=== PATIENT | female | born 1990 | race Two or more races ===

== ENCOUNTER 2016-08-15 00:24 | Inpatient (IN) | payer OTHER ==
[2016-08-15 00:42] VITALS: BMI 35.0
[2016-08-15] MEDS ORDERED: OXYTOCIN IN LR 500 ML IV ONE ×2 (01:14→01:15)
[2016-08-15] MEDS ORDERED: IV START KIT ONE (01:15)
[2016-08-15] MEDS ORDERED: OXYTOCIN 10 UNITS/ML VIAL ONE (01:15)
[2016-08-15] MEDS ORDERED: PUMP TUBING ONE (01:15)
[2016-08-15] MEDS ORDERED: LACTATED RINGERS 1,000 ML ONE (01:15)
[2016-08-15] MEDS ORDERED: MINERAL OIL 25 ML BOT ONE (01:15)
[2016-08-15] MEDS ORDERED: LIDOCAINE Viscous 2% 15 ML UDCUP ONE (01:15)
[2016-08-15] MEDS ORDERED: LIDOCAINE 1% (PRES FREE) 30 ML VIAL ONE (01:15)
[2016-08-15] MEDS ORDERED: LACTATED RINGERS 1,000 ML IV SCH ×2 (01:15→04:28)
[2016-08-15 01:53] LABS: HEMATOCRIT 32.8 % (37.0-47.0); HEMOGLOBIN 10.6 gm/l (12.0-16.0); MEAN CELL VOLUME 85.4 fl (81.0-99.0); MEAN CORPUSCULAR HEMOGLOBIN 27.6 pg (27.0-31.0); MEAN CORPUSCULAR HGB CONC 32.3 g/dl (33.0-37.0); RED CELL DISTRIBUTION WIDTH 15.7 % (11.5-14.5)
--- NOTE | 2016-08-15 03:17 | PCMAN ---
OB Admission Note - History : 2 Term: 1 : 0 Abortions (S&E): 0 Livin EDC:: 08/08/16 Gestational Age (weeks): 41 Days (#/7): 0 Admit Cervical Dilation:: 4.5 Admit Cervical Effacement (%):: 90 Admit Station:: -2 Admit Presentaton:: vertex Membrane Status: Bulging Rupture (Date): 08/15/16 Rupture (Time): 23:00 Membranes Comment:: clear, slow continuous leak Labor Onset (Date): 08/13/16 Labor Onset (Time): 22:00 Contractions: Yes Contraction Frequency:: q2-3 min Heart Rate:: 140 (initially in triage 145, min variability) Status:: Cat I Summary of Course:: 26 yo at 41w0d c/o LOF, also has UCs. PNC: Early PNC. Dated by LMP, c/w organ survey u/s at 22 wks. Uncomplicated course, mild anemia Hgb 10.7 tx'd w oral Fe. OBHx: '10 at term PMH: Varicella PSH: none SocHx: No tob/etoh/drugs Iz: Flu 04/05/16 TdaP 05/09/16 - Labs Blood Type: O (+) positive (ab neg) Hct/Hgb:: 10.7 Rubella Status: Immune GBS Status: Negative Abnormal Labs: None Other Labs:: HIV NR HBsAg NR Syphilis neg GC neg Chlam neg - Physical Exam General: Afebrile, Mild Distress Psych/Mental Status: Mood/Affect Appropriate, Judgment/Insight Intact Neurological: Grossly Intact, Alert, Normal Gait, Normal Speech HEENT: Atraumatic, Mucous membr. moist/pink Lungs: Clear to Auscultation Bilaterally Cardiovascular: Regular Rate and Rhythm Abdomen: Other (gravid) Extremities: Full ROM Skin: Normal Color, Warm, Dry - Problems (1) Post-dates Status: Acute Code: O48.0 Assessment/Plan: 26 yo at 41 0/7 wks w SROM leak, and early labor and flat FHT. Admit IV hydration Expt mgmt Desires natural pain mgmt
[2016-08-15] MEDS: LACTATED RINGERS 1,000 ML IV PRN ×2 (03:32→04:15)
--- NOTE | 2016-08-15 03:33 | PDOC36 ---
Provider Note Subject: Addendum: Note: S: pain is stronger. more difficult to cope, but coping well. desires epidural O: SVE: 5.5/90/-3, large forebag FHT: 140, Cat I [place]: q1-2min, duration 60-180 sec A/P: SROM w labor Epidural for pain Expt mgmt.
[2016-08-15] MEDS ORDERED: FENTANYL/ROPIVACAINE EPIDURAL 250 ML EP ONE (03:39)
[2016-08-15] MEDS ORDERED: EPIDURAL PUMP SET ONE (03:39)
[2016-08-15] MEDS ORDERED: EPIDURAL PROCEDURE TRAY ONE (04:18)
[2016-08-15] MEDS ORDERED: DIPHENHYDRAMINE HCL 50 MG/1 ML VIAL IV PRN (04:28)
[2016-08-15] MEDS ORDERED: LACTATED RINGERS 500 ML IV PRN (04:28)
[2016-08-15] MEDS ORDERED: NALBUPHINE HCL 20 MG/ML AMP IV PRN (04:28)
[2016-08-15] MEDS ORDERED: SODIUM CHLORIDE 0.9% 500 ML IV PRN (04:28)
[2016-08-15] MEDS ORDERED: EPHEDRINE SULFATE 50 MG/ML 1ML VIAL IV PRN (04:28)
[2016-08-15] MEDS ORDERED: ONDANSETRON 4 MG/2ML 2 ML VIAL IV PRN (04:28)
[2016-08-15] MEDS ORDERED: NALOXONE HCL 0.4 MG/ML VIAL IV PRN (04:28)
[2016-08-15] MEDS ORDERED: METOCLOPRAMIDE HCL 5 MG/ML 2ML VIAL IV PRN (04:28)
[2016-08-15] MEDS ORDERED: FENTANYL/ROPIVACAINE EPIDURAL 250 ML EP SCH (04:30)
--- NOTE | 2016-08-15 08:42 | PDOC36 ---
Provider Note Subject: S: Pt comfortable s/p epidural. O: 98.1 95/51 82 16 SVE: 8//-1, AROM of forebag, clear fluid [place]: q2-3min FHT: baseline 140bpm/mod val[place]/no accels/no decels A/P 26 yo @ 41w0d, SROM 1. Labor: cont expectant management, progressing. Anticipate . 2. FWB: Cat 1 3. Pain: s/p epidural 4. GBS neg
--- NOTE | 2016-08-15 13:32 | PCMDEL ---
Delivery Note - Labor 1st stage (hr/min):: 13h15m 2nd stage (hr/min):: 1h1m 3rd stage (hr/min):: 6m Total (hr/min):: 14h22m Pushed (hr/min):: 1h1m - Delivery Delivery (Date): 08/15/16 Delivery (Time): 13:16 Gender: Female Position: OA Umbilical Cord: 3 Vessel Delayed Cord Clamping:: 2-3 min 1 Minute Total: 9 5 Minute Total: 9 Placenta:: intact EBL:: 250cc Perineum:: intact, no lacs Suture:: none Anesthesia/Meds:: epidural Length ROM:: 14h16m Comments:: Uncomplicated over intact perineum. Cord clamping delayed by 2min, cut by FOB. Active management of 3rd stage with IV pitocin, placenta delivered intact. No lacerations noted on perineal exam. Hemostasis confirmed, fundus firm. EBL 250cc.
[2016-08-15] MEDS ORDERED: BENZOCAINE/MENTHOL 60 APPLIC/BOT TP PRN (13:40)
[2016-08-15] MEDS ORDERED: OXYCODONE HCL 5 MG TABLET PO PRN (13:40)
[2016-08-15] MEDS ORDERED: DOCUSATE SODIUM 100 MG CAPSULE PO PRN (13:40)
[2016-08-15] MEDS ORDERED: HYDROCODONE/ACETAMINOPHEN 5/325MG TABLET PO PRN (13:40)
[2016-08-15] MEDS ORDERED: LANOLIN 50 APPLIC/7G TUBE TP PRN (13:40)
[2016-08-16 07:00] LABS: HEMATOCRIT 29.1 % (37.0-47.0); HEMOGLOBIN 9.2 gm/l (12.0-16.0)
[2016-08-16] MEDS: IBUPROFEN 600 MG TABLET PO PRN ×2 (09:14→20:04)
--- NOTE | 2016-08-16 09:14 | PDOC39B ---
Hospital Course: ADMIT DATE: 08/15/16 DISCHARGE DATE: 08/16/16 ADMISSION DIAGNOSES: labor PROCEDURES: HISTORY OF PRESENT ILLNESS: 26 year old G2 T1 L1 at 41 weeks 0 days presenting with in active labor HOSPITAL COURSE: The patient is doing well. Breast feeding. minimal pain. By day of discharge the patient is ambulating, eating, voiding, and passing flatus without difficulty. Pain is controlled and lochia is appropriate. She is [] - Physical Exam Vital Signs: Temp Pulse Resp BP Pulse Ox 98.2 F 77 16 97/56 08/16/16 03:02 08/16/16 03:02 08/16/16 03:02 08/16/16 03:02 General: Afebrile Neurological: Alert HEENT: Atraumatic Lungs: Clear to Auscultation Bilaterally Cardiovascular: Regular Rate and Rhythm Breast: Soft Fundus: Midline Lochia: Light Extremities: Other (nt no edema) - Discharge Diagnosis (1) Normal vaginal delivery Status: Acute Assessment/Plan: PPD 1, doing well. discharge home this afternoon. (2) Anemia, Status: Acute Assessment/Plan: asymptomatic, dc home on iron - Discharge Plan Condition: Good Disposition: Home Prescriptions: Docusate Sodium [COLACE 100 MG CAPSULE (SHF)] 100 mg PO DAILY PRN #30 cap PRN Reason: Constipation Ibuprofen [Motrin] 800 mg PO Q8H PRN #30 tablet PRN Reason: Pain FERROUS SULFATE (65 Fe) [IRON FERROUS SULFATE 325 MG TABLET (SHF)] 325 mg PO DAILY #30 tab Follow-Up: Raffi Poon PA-C [Primary Care Provider] - In 6 weeks
[2016-08-17 08:55] VITALS: BP 102/63
--- NOTE | 2016-08-17 11:33 | PDOC39B ---
Hospital Course: ADMIT DATE: 08/15/16 DISCHARGE DATE: 08/17/16 ADMISSION DIAGNOSES: Labor PROCEDURES: HOSPITAL COURSE: 26 year old G2 T1 L1 at 41 weeks 0 days presenting with in active labor. She delivered via without complication. Her course was unremarkable. The patient is doing well. Breast feeding. minimal pain. By day of discharge the patient is ambulating, eating, voiding, and passing flatus without difficulty. Pain is controlled and lochia is appropriate. - Physical Exam Vital Signs: Temp Pulse Resp BP Pulse Ox 98.6 F 75 16 102/63 08/17/16 08:51 08/17/16 08:51 08/17/16 08:51 08/17/16 08:51 General: Afebrile Psych/Mental Status: Mood/Affect Appropriate, Judgment/Insight Intact, Bonding Well Neurological: Grossly Intact, Alert, Oriented x 4 HEENT: Mucous membr. moist/pink Lungs: Clear to Auscultation Bilaterally Cardiovascular: Regular Rate and Rhythm Fundus: Firm, At Umbilicus Skin: Normal Color - Discharge Diagnosis (1) Anemia, Status: Acute Assessment/Plan: asymptomatic, dc home on iron (2) Normal vaginal delivery Status: Acute Assessment/Plan: PPD 2, doing well. discharge home this afternoon. - Discharge Plan Condition: Good Disposition: Home Instruction Forms: Vaginal Discharge Instructions Prescriptions: Docusate Sodium [COLACE 100 MG CAPSULE (SHF)] 100 mg PO DAILY PRN #30 cap PRN Reason: Constipation Ibuprofen [Motrin] 800 mg PO Q8H PRN #30 tablet PRN Reason: Pain FERROUS SULFATE (65 Fe) [IRON FERROUS SULFATE 325 MG TABLET (SHF)] 325 mg PO DAILY #30 tab Follow-Up: Raffi Poon PA-C [Primary Care Provider] - In 6 weeks
[2016-08-17] MEDS ORDERED: FERROUS SULFATE (65 Fe) 325 MG TABLET PO SCH (21:00)
== END 2016-08-17 12:11 | disposition home or self-care (01) | DRG 775 ==
LOC: FBCOUT 00:24 → FBC 00:24 → FBCOUT 01:13 → FBC 01:13
PROVIDERS: ADMIT Family Medicine; ATTEND Family Medicine
PROC: 10E0XZZ Delivery of Products of Conception, External Approach (ICD-10-PCS; principal; 2016-08-15)
PROC: 00HU33Z Insertion of Infusion Device into Spinal Canal, Percutaneous Approach (ICD-10-PCS; 2016-08-15)
DX: O48.0 Post-term pregnancy (principal); O90.81 Anemia of the puerperium; Z3A.41 41 weeks gestation of pregnancy; Z37.0 Single live birth